=== PATIENT | male | born 1975 | race Caucasian/White ===

== ENCOUNTER 2019-05-18 03:39 | Inpatient (IN) | payer OTHER ==
[~2019-05-18] VITALS: Ht 175.3 cm; Wt 106.6 kg
[2019-05-18 03:43] VITALS: BP 172/98
[2019-05-18] MEDS ORDERED: METFORMIN HCL500 M3 PO (03:47)
[2019-05-18 04:51] LABS: ABSOLUTE BASOPHILS 0.1 thou/uL (0.0-0.2); ABSOLUTE LYMPHOCYTES 1.9 thou/uL (0.8-5.3); ABSOLUTE MONOCYTES 1.1 thou/uL (0.0-1.2); ABSOLUTE NEUTROPHILS 11.1 thou/uL (1.6-8.1); BASOPHILS 0.7 %; EOSINOPHILS 0.2 %; HEMATOCRIT 38.3 % (42.0-52.0); HEMOGLOBIN 13.1 gm/dL (14.0-18.0); LYMPHOCYTES 13.5 %; MCH 28.5 pg (26.0-34.0); MCHC 34.3 g/dL (28.0-37.0); MCV 82.9 fL (80.0-100.0); MONOCYTES 7.7 %; MPV 8.6 fl. (7.2-11.1); NUCLEATED RBCS 0 /100WBC; PLATELET COUNT* 246 thou/uL (150-400); POLYS 77.9 %; RBC 4.61 mil/uL (4.50-6.00); WBC 14.3 thou/uL (4.0-11.0)
[2019-05-18 05:03] LABS: CALCIUM 8.8 mg/dL (8.5-10.1); CREATININE 0.8 mg/dL (0.6-1.3); POTASSIUM 3.7 mmol/L (3.5-5.1)
[2019-05-18 05:08] LABS: ALBUMIN 3.3 g/dL (3.4-5.0); TOTAL BILIRUBIN 0.6 mg/dL (<0.1-1.0); TOTAL PROTEIN 7.9 g/dL (6.4-8.2)
--- NOTE | 2019-05-18 07:00 | NUR ---
RECEIVED REPORT FROM INGE KRUEGER. THIS NURSE TO ASSUME PT CARE AT THIS TIME.
[2019-05-18 14:10] VITALS: BP 127/81
--- NOTE | 2019-05-18 18:55 | NUR ---
REPORT GIVEN TO INGE CAMARILLO WHO IS TO ASSUME PT CARE AT THIS TIME.
[2019-05-18 20:00] VITALS: BP 163/76; BP 165/83
--- NOTE | 2019-05-18 22:35 | NUR ---
PT ADMITTED TO ROOM 318 AT 1999 FOR CELLULITIS OF FACE. PT'S LEFT SIDE OF FACE UNDER EAR VISIBLY RED AND SWOLLEN. PT RATED PAIN AT 8 ON PAIN SCALE AT THAT TIME. PT GIVEN PRN MORPHINE WITH GOOD RELIEF. PT ORIENTED TO ROOM, CALL LIGHT AND BED CONTROLS. PT GIVEN PRN TYLENOL FOR ORAL TEMP OF 101.6. BLOOD CULTURES DRAWN IN ED PRIOR TO ADMIT.
[2019-05-19 05:53] LABS: HEMATOCRIT 34.2 % (42.0-52.0); HEMOGLOBIN 11.5 gm/dL (14.0-18.0); MCH 28.3 pg (26.0-34.0); MCHC 33.7 g/dL (28.0-37.0); MCV 84.2 fL (80.0-100.0); MPV 9.1 fl. (7.2-11.1); RBC 4.06 mil/uL (4.50-6.00); RDW-CV 13.2 % (10.5-14.5); WBC 13.7 thou/uL (4.0-11.0)
[2019-05-19 06:08] LABS: CREATININE 0.6 mg/dL (0.6-1.3); MAGNESIUM 1.7 mg/dL (1.8-2.4); POTASSIUM 3.9 mmol/L (3.5-5.1)
[2019-05-19 08:00] VITALS: BP 152/68
--- NOTE | 2019-05-19 13:47 | NUR ---
Pt lives at home alone. Pt has support system and a contact assembler if needed. SW to remain available to assist with safe dc planning if needs arise.
--- NOTE | 2019-05-19 18:43 | NUR ---
PATIENT HAS BEEN RESTING QUIETLY ALL DAY, MSO4 4MG GIVEN X2 LAST DOSE AT 1710 FOR C/O LEFT HEAD/CHEEK/JAW PAIN 5/10 WITH STATED COMPLETE RELIEF. DURING ASSESSMENT THIS MORNING PATIENT STATED HE HAS A DRY WHEEZY COUGH, TAKING A DEEP BREATH MAKES HIM COUGH AND SOMETIMES HAVE A COUGHING FIT, TEMP 99.3. PATIENT STATES HE WAS IN [facility] LAST / IN HIS [facility] ALL DAY AND THEN STAYED AT THE [facility]. AT 1630 TEMP 101.6, PATIENT STATES HIS COUGH HAS BEEN A BIT MORE FREQUENT AND NOW THE ABSCESS IS DRAINING THICK CURRIE COLORED DRAINAGE. TYLENOL 325MG 2 TABS GIVEN AT 1710 FOR FEVER, AND WMP ON LEFT SIDE OF FACE.
[2019-05-19 21:00] VITALS: BP 153/79
[2019-05-20 08:00] VITALS: BP 158/86
[2019-05-20 20:00] VITALS: BP 156/80
[2019-05-21 08:15] VITALS: BP 138/82
[2019-05-21 20:00] VITALS: BP 153/81
--- NOTE | 2019-05-21 20:12 | NUR ---
Remains A&OX4. Respirations even and unlabored on room air. Denies pain. Medicated with pain med PRN. IVFs infusing without complications. Warm pack applied to left side of face. Continues to be reddened and swollen. Atbx without s/sx of adverse reactions. Awaiting pending lab results to go to CT for CT scan of face. ACHS FSBS with scheduled and SSI. No s/sx of hypo/hyperglycemia. Tolerating food and liquids. Recent temp 99.6 (oral). VSS. Transferred to Room 220 via wheelchair without incident. Nsg will continue to assess.
--- NOTE | 2019-05-22 05:46 | NUR ---
PT IS TRANSFERRED FROM [facility] AT APPROX 1950. PT IS AWAKE AND ORIENTED X4. ASSESSMENT DONE AND CHARTED. PT DENIES PAIN OF THIS TIME. PT IS ABLE TO SLEEP MOST OF THE NIGHT. CALL LIGHT WITHIN REACH. PT IS MONITORED.
[2019-05-22 08:17] VITALS: BP 136/88
--- NOTE | 2019-05-22 09:03 | NUR ---
ASSUMED CARE OF PT THIS AM AROUND 0715- DEPOT MANAGER IN PLACE ORDERED, TRACING SR- UPON ASSESSMENT PT NOTED TO BE RESTING IN BED, WATCHING TV- PT A&O X4- CONT OF BOWEL AND BLADDER- UP AD-JULIETTE IN ROOM, STEADY GAIT NOTED- VSS, O2 SAT 96% ON RA- PT DENIES ANY COUGH- LCTA, RESP EVEN AND UN-LABORED- ABD SOFT/ROUND/NON-TENDER, BS X4 QUADS-GOOD PO INTAKE NOTED THIS SHIFT WITH MEALS, BS MONITORED ORDERED WITH INSULIN PRESCRIBED- LAST BM REPORTED 05/21/19- IV NOTED TO LEFT AC INTACT AND SL-LEFT CHEECK SWELLING/REDNESS NOTED- PT DENEIS ANY C/O PAIN/DISCOMFORT AT THIS TIME- CALL LIGHT AND PERSONAL BELONGINGS WITH IN REACH- PT MAKES NEEDS KNOWN- ALL NEEDS MET AT THIS TIME-WCTM
[2019-05-22] MEDS ORDERED: AUGMENTIN 500-1 EACH PO (10:04)
[2019-05-22] MEDS ORDERED: HYDROCODON-ACE1 EAC7 PO (10:08)
[2019-05-22 14:43] VITALS: BP 136/88
== END 2019-05-22 15:07 | disposition home or self-care (01) | DRG 854 ==
LOC: M.ERS 03:39 → M.TBA-ER 07:59 → M.3W 07:59 → M.2W 05-21 20:16
PROVIDERS: Emergency Medicine; Internal Medicine; ADMIT Internal Medicine
PROC: 0J910ZZ Drainage of Face Subcutaneous Tissue and Fascia, Open Approach (ICD-10-PCS; principal; 2019-05-22)
DX: A41.9 Sepsis, unspecified organism (principal); L03.211 Cellulitis of face; L02.01 Cutaneous abscess of face; E11.9 Type 2 diabetes mellitus without complications; H60.12 Cellulitis of left external ear; Z79.899 Other long term (current) drug therapy; Z79.84 Long term (current) use of oral hypoglycemic drugs